=== PATIENT | male | born 1980 | race Two or more races ===

== ENCOUNTER 2024-06-25 22:34 | Inpatient (IN) | payer OTHER ==
[~2024-06-25] VITALS: Ht 172.7 cm; Wt 81.8 kg
[2024-06-26 00:45] LABS: BASOPHILS % (AUTO) 0.2 % (0.0-2.0); EOSINOPHILS % (AUTO) 0.1 % (1.0-6.0); HEMATOCRIT 47.8 % (41-53); HEMOGLOBIN 16.2 g/dL (13.5-17.5); LYMPHOCYTES # (AUTO) 1.1 K/uL (1.0-4.8); LYMPHOCYTES % (AUTO) 10.8 % (22.0-44.0); MEAN CORPUSCULAR HEMOGLOBIN 31.3 pg (26.0-34.0); MEAN CORPUSCULAR VOLUME 92 fL (80-100); MONOCYTES % (AUTO) 10.3 % (2.0-9.0); NEUTROPHILS # (AUTO) 7.8 K/uL (1.8-7.7); NEUTROPHILS % (AUTO) 78.6 % (40.0-70.0); PLATELET COUNT (AUTO) 236 K/uL (150-450); RED BLOOD CELL COUNT(AUTO) 5.18 MIL/uL (4.50-5.90); RED CELL DISTRIBUTION WIDTH 13.3 % (11.5-14.5); WHITE BLOOD COUNT (AUTO) 9.9 K/uL (4.5-11.0)
[2024-06-26 00:57] LABS: ANION GAP 5 mmol/L (8-16); CALCIUM, TOTAL 9.2 mg/dL (8.8-10.5); CARBON DIOXIDE 31 mmol/L (22-29); CHLORIDE 101 mmol/L (98-107); CREATININE 0.91 mg/dL (0.60-1.30); GLOMERULAR FILTR. RATE CALC > 60 mL/min (>60); GLUCOSE,RANDOM 121 mg/dL (70-110); POTASSIUM 3.8 mmol/L (3.5-5.1); SODIUM SERUM 137 mmol/L (136-145); UREA NITROGEN, BLOOD 17 mg/dL (7-18)
[2024-06-26 01:02] LABS: ALBUMIN 3.8 g/dL (3.4-5.0); BILIRUBIN,DIRECT 0.2 mg/dL (0.00-0.20); BILIRUBIN,TOTAL 0.8 mg/dL (0.1-1.0)
[2024-06-26 01:06] LABS: ALCOHOL, BLOOD (SERUM) < 3 mg/dL (0-10)
[2024-06-26] MEDS: ONDANSETRON HCL 4 MG/2 ML VIAL IVP ONE (07:21)
[2024-06-26 11:00] VITALS: BP 176/87; PULSE 67; RESP 16; TEMP 97.9; O2SAT 97
[2024-06-26 12:10] VITALS: BP 146/85; PULSE 92; RESP 18; TEMP 98.1; O2SAT 100
[2024-06-26] MEDS: ACETAMINOPHEN 325 MG TABLET PO PRN (12:10)
[2024-06-26] MEDS: CloNIDine HCL 0.1 MG TABLET PO PRN (12:10)
[2024-06-26 15:24] VITALS: BP 142/84; PULSE 94; RESP 18; TEMP 98.8; O2SAT 100
[2024-06-26 20:07] VITALS: BP 155/94; PULSE 76; RESP 20; TEMP 98.6; O2SAT 94
[2024-06-27 00:06] LABS: GLUCOMETER DEV NAME(LOC) ER.7; GLUCOSE,POINT OF CARE 254 MG/DL (70-110)
[2024-06-27 06:27] VITALS: BP 158/76; PULSE 99; RESP 18; TEMP 99.1; O2SAT 96
[2024-06-27 09:17] VITALS: BP 167/98; PULSE 78; RESP 18; TEMP 97.7; O2SAT 96
[2024-06-27] MEDS: AmLODIPine BESYLATE 5 MG TABLET PO SCH (14:04)
[2024-06-27 17:22] VITALS: BP 138/87; PULSE 82; RESP 18; O2SAT 95
[2024-06-27] MEDS ORDERED: LOPERAMIDE HCL 2 MG CAPSULE PO PRN (20:00)
[2024-06-27 20:17] VITALS: BP 107/50; PULSE 99; RESP 18; TEMP 98.1; O2SAT 94
[2024-06-28 04:00] VITALS: BP 165/111; PULSE 90; RESP 18; TEMP 98.1; O2SAT 98
[2024-06-28 05:08] VITALS: BP 149/90; PULSE 92; RESP 18; TEMP 98; O2SAT 99
[2024-06-28 08:00] VITALS: BP 152/96; PULSE 81; RESP 14; TEMP 98.4; O2SAT 97
[2024-06-28] MEDS ORDERED: AMLO-257 PO (12:20)
== END 2024-06-28 18:30 | DRG 897 ==
LOC: EMS 22:34 → ICUN 06-26 07:17 → 6S 06-26 11:15
PROVIDERS: ADMIT Internal Medicine; ATTEND Internal Medicine
DX: F11.90 Opioid use, unspecified, uncomplicated (principal); I10 Essential (primary) hypertension; F17.210 Nicotine dependence, cigarettes, uncomplicated; Z79.899 Other long term (current) drug therapy
CPT/HCPCS: 80048; 80076; 82962; 85025; 99285; G0480; J2405